=== PATIENT | male | born 1945 | race Caucasian/White ===

== ENCOUNTER 2017-03-22 15:25 | Inpatient (IN) | payer MEDICARE, BC ==
[~2017-03-22] VITALS: Ht 182.9 cm; Wt 104.7 kg
[~2017-03-22 15:25] MED LIST: CEPH-376 PO; HYDR-3237 PO; SERT100T5 PO
[2017-03-22] MEDS ORDERED: ALBUTEROL/IPRATROPIUM 2.5MG/0.5MG, 3 ML ONE (15:52)
[2017-03-22] MEDS ORDERED: SODIUM CHLORIDE FLUSH 10ML SYR IVF ONE (16:00)
[2017-03-22] MEDS ORDERED: ASPIRIN 81 MG TABLET CHEW PO ONE (16:00)
[2017-03-22] MEDS ORDERED: methylPREDNISolone SOD SUCC 125 MG/2 ML IVP ONE (16:00)
[2017-03-22] MEDS ORDERED: ALBUTEROL/IPRATROPIUM 2.5MG/0.5MG, 3 ML NPPB PRN ×2 (16:00→20:00)
[2017-03-22 16:06] LABS: HEMATOCRIT 46.4 % (39.2-51.8); WHITE BLOOD COUNT 10.2 x10^3/uL (3.4-10)
[2017-03-22] MEDS ORDERED: ASPIRIN 81 MG TABLET CHEW ONE (16:09)
[2017-03-22] MEDS ORDERED: methylPREDNISolone SOD SUCC 125 MG/2 ML ONE (16:09)
[2017-03-22 16:18] LABS: ASPARTATE AMINO TRANSFERASE 18 U/L (15-37); BLOOD UREA NITROGEN 15 mg/dL (7-18)
[2017-03-22 16:24] LABS: IS PT STATUS REG ER OR PRE ER? YES
[2017-03-22] MEDS ORDERED: morphine SULFATE 10 MG/ML, 1ML IVPush PRN (18:30)
[2017-03-22] MEDS ORDERED: LABETALOL 5MG/ML, 20ML IVPush PRN (18:30)
[2017-03-22] MEDS ORDERED: ENOXAPARIN 40 MG/0.4 ML SQ SCH (18:30)
[2017-03-22] MEDS ORDERED: ONDANSETRON ODT 4 MG PO PRN (18:30)
[2017-03-22] MEDS ORDERED: SODIUM CHLORIDE FLUSH 10ML SYR IVF PRN (18:30)
[2017-03-22] MEDS ORDERED: HYDROcodone/APAP 5/325 TABLET PO PRN (18:30)
[2017-03-22] MEDS ORDERED: ONDANSETRON 2MG/ML, 2ML IVPush PRN (18:30)
[2017-03-22] MEDS ORDERED: ASPIRIN 325 MG TABLET EC PO ONE (19:00)
[2017-03-22] MEDS ORDERED: OMNIPAQUE 350 MG/ML, 100ML BOTTLE ONE (19:07)
[2017-03-22 20:45] VITALS: BP 135/70
[2017-03-22] MEDS: FUROSEMIDE 20 MG/2 ML IV SCH (23:00)
[2017-03-22 23:58] LABS: IS PT STATUS REG ER OR PRE ER? NO
[2017-03-23 03:22] VITALS: BP 145/53
[2017-03-23 05:57] LABS: ASPARTATE AMINO TRANSFERASE 14 U/L (15-37); BLOOD UREA NITROGEN 24 mg/dL (7-18); HEMATOCRIT 44.4 % (39.2-51.8); HEMOGLOBIN 15.2 g/dL (13.7-18.0); WHITE BLOOD COUNT 9.2 x10^3/uL (3.4-10)
[2017-03-23] MEDS ORDERED: ASPIRIN 81 MG TABLET EC PO SCH (06:00)
[2017-03-23 06:02] LABS: IS PT STATUS REG ER OR PRE ER? NO
[2017-03-23 07:05] VITALS: BP 106/63
[2017-03-23] MEDS ORDERED: SERTRALINE 100MG TABLET PO SCH (09:00)
[2017-03-23] MEDS ORDERED: REGADENOSON 0.4 MG/5 ML SYRINGE ONE (09:15)
[2017-03-23] MEDS: FUROSEMIDE 20 MG/2 ML IV SCH (12:55)
[2017-03-23 13:11] VITALS: BP 131/70
[2017-03-23] MEDS ORDERED: ASPI-621 PO (16:57)
[2017-03-23] MEDS ORDERED: POTA10CA PO (16:57)
[2017-03-23] MEDS ORDERED: FURO-93 PO (16:57)
== END 2017-03-23 18:27 | disposition home or self-care (01) | DRG 392 ==
LOC: ED 18:03 → EDIP 18:23 → 4EST 20:29
PROVIDERS: ADMIT Hospitalist; ATTEND Hospitalist
DX: K21.9 Gastro-esophageal reflux disease without esophagitis (principal); I50.30 Unspecified diastolic (congestive) heart failure; J44.1 Chronic obstructive pulmonary disease with (acute) exacerbation; I11.0 Hypertensive heart disease with heart failure; I49.5 Sick sinus syndrome; F32.9 Major depressive disorder, single episode, unspecified; E03.9 Hypothyroidism, unspecified; E78.1 Pure hyperglyceridemia; F43.10 Post-traumatic stress disorder, unspecified; Z77.090 Contact with and (suspected) exposure to asbestos; Z79.82 Long term (current) use of aspirin; Z82.5 Family history of asthma and other chronic lower respiratory diseases; Z87.891 Personal history of nicotine dependence; Z95.0 Presence of cardiac pacemaker
CPT/HCPCS: 36415; 71010; 71275; 78452; 80053; 80061; 83735; 83880; 84484; 85025; 93005; 93017; 93306; 94640; 96374; J1650; J2785; J7620; Q9967; A9502; C9898; J1940; J2930